=== PATIENT | female | born 1955 | race African-American/Black ===

== ENCOUNTER 2016-08-29 12:55 | Emergency (ER) | payer MEDICAID ==
[~2016-08-29] VITALS: Ht 165.1 cm; Wt 78.0 kg
[~2016-08-29 12:55] MED LIST: hormones
[2016-08-29 13:05] VITALS: Ht 165.1 cm; Wt 78.0 kg
[2016-08-29 19:23] LABS: ADD SCAN DIFF NO
[2016-08-29 19:25] LABS: BASOPHILS % 0.4 % (0.0-2.0); EOSINOPHILS # 0.3 10^3/ul (0.0-0.5); EOSINOPHILS % 5.9 % (0.0-7.0); HEMATOCRIT 42.8 % (37.0-47.0); HEMOGLOBIN 15.2 g/dl (12.0-16.0); LYMPHOCYTES # 2.2 10^3/ul (0.8-2.9); LYMPHOCYTES % 47.9 % (15.0-51.0); MEAN CORPUSCULAR HEMOGLOBIN 34.6 pg (29.0-33.0); MEAN CORPUSCULAR HGB CONC 35.5 g/dl (32.0-37.0); MEAN CORPUSCULAR VOLUME 97.5 fl (82.0-101.0); MEAN PLATELET VOLUME 8.4 fl (7.4-10.4); MONOCYTE # 0.4 10^3/ul (0.3-0.9); MONOCYTES % 8.4 % (0.0-11.0); NEUTROPHIL # 1.7 10^3/ul (1.6-7.5); NEUTROPHILS % 37.2 % (39.0-77.0); PLATELET COUNT 177 10^3/UL (140-415); RED BLOOD COUNT 4.39 10^6/ul (4.20-5.40); RED CELL DISTRIBUTION WIDTH 12.7 % (11.5-14.5); WHITE BLOOD COUNT 4.6 10^3/ul (4.8-10.8)
--- NOTE | 2016-08-29 19:29 | RADRPT ---
PROCEDURE: CT Brain without contrast. CLINICAL INDICATION: Headache TECHNIQUE: A CT of the brain was performed on a [employer] 64-slice CT scanner utilizing axial imaging from the skull base through the vertex without IV contrast. Multiplanar reformatted images were made. Images were reviewed on a PACS workstation. The CTDIvol is 44.5 mGy and the DLP is 720 mGycm. COMPARISON: None FINDINGS: There is no intracranial hemorrhage, mass effect, or midline shift. No extra-axial fluid collection is seen. The ventricles and sulci are normal in size and configuration. An extra-axial CSF density space anterior to the left temporal lobe in the left middle cranial fossa likely represents an arach noid cyst. Incidentally noted is a giana cisterna magna in the posterior fossa. Otherwise, the dens ity of the brain is normal, and the pate white matter differentiation appears well-preserved. The v isualized paranasal sinuses and osseous structures are grossly unremarkable. IMPRESSION: 1. No evidence of acute intracranial pathology. 2. An extra-axial CSF density lesion anterior to the left temporal lobe likely reflects an arachnoid cyst. This can be confirmed with a non emergent MRI of the brain. Physician Cathleen Date Time Electronically viewed and signed by Physician Cathleen on 08/29/2016 19:28 ML/
[2016-08-29 19:42] LABS: INR 0.92; PROTIME 12.4 Sec (12.2-14.2)
[2016-08-29 19:43] LABS: PARTIAL THROMBOPLASTIN TIME 25.2 Sec (25.0-35.0)
[2016-08-29 19:55] LABS: ALBUMIN 3.9 g/dl (3.3-4.9); CHLORIDE 101 mmol/L (97-110)
[2016-08-29 19:56] LABS: POTASSIUM 4.1 mmol/L (3.5-5.1); SODIUM 143 mmol/L (135-144)
[2016-08-29 19:58] LABS: ANION GAP 15 (8-16); BILIRUBIN,INDIRECT 0.3 mg/dl (0-1.1); BILIRUBIN,TOTAL 0.3 mg/dl (0.2-1.3); CARBON DIOXIDE 31 mmol/L (21-31); CREATININE 1.08 mg/dl (0.44-1.00)
[2016-08-29 19:59] LABS: ALANINE AMINOTRANSFERASE 137 IU/L (13-69); ALBUMIN/GLOBULIN RATIO 0.88; ALKALINE PHOSPHATASE 61 IU/L (42-121); ASPARTATE AMINO TRANSFERASE 110 IU/L (15-46); BLOOD UREA NITROGEN 19 mg/dl (7-20); CALCIUM 9.4 mg/dl (8.4-10.2); GLUCOSE 77 mg/dl (70-220); TOTAL PROTEIN 8.3 g/dl (6.1-8.1)
[2016-08-29] MEDS ORDERED: KETOROLAC 15 MG INJ IV STA (20:13)
--- NOTE | 2016-08-29 20:13 | ERD ---
ER Documentation Chief Complaint Date/Time DATE: 08/29/16 TIME: 20:12 Chief Complaint kenny, unclear hx HPI 61-year-old female ambulatory to the ED complaining of a four-month history of intermittent occipital headaches. Denies visual changes, focal weakness or numbness. No neck or back pain. History of same. Complaining of increasing stress and anxiety at work. Denies chest pain or palpitations. No shortness of breath or cough. No abdominal pain, nausea vomiting. No dysuria, polyuria, hematuria or flank pain. No leg pain or swelling. No skin rash. No fevers or chills. ROS All systems reviewed and are negative except as per history of present illness. Medications Home Meds Reported Medications [hormones] No Conflict Check 10/23/11 Allergies Allergies: Coded Allergies: Penicillins (Verified Allergy, 10/23/11) PMhx/Soc Reviewed in chart. As per HPI. History of Surgery: No Anesthesia Reaction: No Hx Neurological Disorder: No Hx Respiratory Disorders: No Hx Cardiac Disorders: No Hx Psychiatric Problems: No Hx Miscellaneous Medical Probl: No Hx Alcohol Use: Yes (occasional) Hx Substance Use: No Hx Tobacco Use: Yes (1pack/day) Smoking Status: Current every day smoker FmHx No coronary artery disease, diabetes, cancer subarachnoid hemorrhage Physical Exam Vitals Vital Signs Date Time Temp Pulse Resp B/P Pulse Ox O2 Delivery O2 Flow Rate FiO2 08/29/16 22:15 98.5 74 16 108/65 99 Room Air 08/29/16 20:11 80 16 114/75 99 Room Air 08/29/16 13:05 98.1 95 20 140/63 99 Physical Exam Const: Alert, no acute distress. Head: Atraumatic Eyes: Normal Conjunctiva ENT: Normal External Ears, Nose and Mouth. Neck: Full range of motion. Nontender. Carotids 2+ bilaterally without bruits. Resp: Clear to auscultation bilaterally Cardio: Regular rate and rhythm, no murmurs Abd: Soft, non tender, non distended. Normal bowel sounds Skin: No petechiae or rashes Back: No midline or flank tenderness Ext: No cyanosis, or edema Neur: Awake and alert Psych: Appears mildly anxious but not depressed. Result Diagram: 08/29/16190208/29/161902 Results 24 hrs Laboratory Tests Test 08/29/16 19:03 08/29/16 19:30 08/29/16 21:25 White Blood Count 4.610^3/ul Red Blood Count 4.3910^6/ul Hemoglobin 15.2g/dl Hematocrit 42.8% Mean Corpuscular Volume 97.5fl Mean Corpuscular Hemoglobin 34.6pg Mean Corpuscular Hemoglobin Concent 35.5g/dl Red Cell Distribution Width 12.7% Platelet Count 17306^3/UL Mean Platelet Volume 8.4fl Neutrophils % 37.2% Lymphocytes % 47.9% Monocytes % 8.4% Eosinophils % 5.9% Basophils % 0.4% Nucleated Red Blood Cells % 0.0/100WBC Neutrophils # 1.710^3/ul Lymphocytes # 2.210^3/ul Monocytes # 0.410^3/ul Eosinophils # 0.310^3/ul Basophils # 0.010^3/ul Nucleated Red Blood Cells # 0.010^3/ul Prothrombin Time 12.4Sec Prothrombin Time Ratio 1.0 INR International Normalized Ratio 0.92 Activated Partial Thromboplast Time 25.2Sec Sodium Level 143mmol/L Potassium Level 4.1mmol/L Chloride Level 101mmol/L Carbon Dioxide Level 31mmol/L Anion Gap 15 Blood Urea Nitrogen 19mg/dl Creatinine 1.08mg/dl Glucose Level 77mg/dl Calcium Level 9.4mg/dl Total Bilirubin 0.3mg/dl Direct Bilirubin 0.00mg/dl Indirect Bilirubin 0.3mg/dl Aspartate Amino Transf (AST/SGOT) 110IU/L Alanine Aminotransferase (ALT/SGPT) 137IU/L Alkaline Phosphatase 61IU/L Troponin I < 0.012ng/ml Total Protein 8.3g/dl Albumin 3.9g/dl Globulin 4.40g/dl Albumin/Globulin Ratio 0.88 Ethyl Alcohol Level < 10.0mg/dl Urine Color YELLOW Urine Clarity CLEAR Urine pH 6.5 Urine Specific [place] 1.020 Urine Ketones NEGATIVE Urine Nitrite NEGATIVE Urine Bilirubin NEGATIVE Urine Urobilinogen 2.0 E.U./dL Urine Leukocyte Esterase NEGATIVE Urine Hemoglobin NEGATIVE Urine Glucose NEGATIVE% Urine Total Protein NEGATIVE Urine Opiates Screen Negative Urine Barbiturates Negative Urine Amphetamines Screen Negative Urine Benzodiazepines Screen Negative Urine Cocaine Screen Positive Urine Cannabinoids Positive Current Medications Medications (Trade) Dose Ordered Sig/Samuel Route PRN Reason Start Time Stop Time Status Last Admin Dose Admin Ketorolac Tromethamine (Toradol) 15 mg ONCE STAT IV 08/29/16 20:13 08/29/16 20:14 DC 08/29/16 20:36 EKG: TIME: 19:31. Sinus rhythm. Ventricular rate 79. Normal OK interval. Incomplete right bundle branch block with QRS of 110 ms. EP Interpretation: Borderline EKG. IMAGING: PROCEDURE: CT Brain without contrast. CLINICAL INDICATION: Headache TECHNIQUE: A CT of the brain was performed on a [employer] 64-slice CT scanner utilizing axial imaging from the skull base through the vertex without IV contrast. Multiplanar reformatted images were made. Images were reviewed on a PACS workstation. The CTDIvol is 44.5 mGy and the DLP is 720 mGycm. COMPARISON: None FINDINGS: There is no intracranial hemorrhage, mass effect, or midline shift. No extra- axial fluid collection is seen. The ventricles and sulci are normal in size and configuration. An extra-axial CSF density space anterior to the left temporal lobe in the left middle cranial fossa likely represents an arachnoid cyst. Incidentally noted is a giana cisterna magna in the posterior fossa. Otherwise, the density of the brain is normal, and the pate white matter differentiation appears well-preserved. The visualized paranasal sinuses and osseous structures are grossly unremarkable. IMPRESSION: 1. No evidence of acute intracranial pathology. 2. An extra-axial CSF density lesion anterior to the left temporal lobe likely reflects an arachnoid cyst. This can be confirmed with a non emergent MRI of the brain. Physician Cathleen Date Time Electronically viewed and signed by Physician Cathleen on 08/29/2016 19 :28 ML/ Procedures/MDM DOCUMENTS REVIEWED: ED nurse, no prior records available ED COURSE: Ketorolac 15 mg IV. REEXAMINATION/REEVALUATION: Time: 22:55. Doing well. Asymptomatic. MEDICAL DECISION MAKIN-year-old female ambulatory to the ED complaining of a four-month history of intermittent occipital headaches. Differential Diagnosis includes but is not limited to intracranial mass, hydrocephalus, migraine headache, tension headache, subarachnoid hemorrhage, meningitis, encephalitis, temporal arteritis, sinusitis and glaucoma. Headache was gradual onset, not thunderclap or described as the "worse headache of her life" hence presentation not compatible with subarachnoid hemorrhage and LP not indicated no neurologic deficit, ataxia or other evidence of an acute intracranial process. No rhinorrhea, nasal discharge or evidence of sinusitis. No ataxia or signs of increased intracranial pressure. No stigmata of meningitis or encephalitis. CT unremarkable for an acute process and reveals an arachnoid cyst with the patient admits to having previously. No signs or symptoms of temporal arteritis. Pain resolved completely with ketorolac. Urine toxicology is positive for cocaine patient subsequently admitted use. Drug cessation counseling provided. Stable for discharge precautionary instructions and outpatient management follow-up. Counseled patient regarding diagnostic workup, diagnosis and need for followup. Understands to return to ED if symptoms recur, worsen or any other concerns. Departure Diagnosis: Primary Impression: Cephalgia Headache type: unspecified Headache chronicity pattern: unspecified pattern Intractability: not intractable Qualified Code: R51 - Nonintractable headache, unspecified chronicity pattern, unspecified headache type Additional Impressions: Cocaine abuse Anxiety Arachnoid cyst ALVA CLEMENTE MD Aug 29, 2016 20:12
[2016-08-29 20:36] LABS: TROPONIN-I < 0.012 ng/ml (0.00-0.12)
[2016-08-29 21:41] LABS: ADD UMIC NO; URINE BILIRUBIN (Dip) NEGATIVE (NEGATIVE); URINE BLOOD (Dip) NEGATIVE (NEGATIVE); URINE COLOR YELLOW (YELLOW); URINE GLUCOSE (Dip) NEGATIVE (NEGATIVE); URINE KETONES (Dip) NEGATIVE (NEGATIVE); URINE LEUKOCYTE ESTERASE (Dip) NEGATIVE (NEGATIVE); URINE NITRITE (Dip) NEGATIVE (NEGATIVE); URINE TOTAL PROTEIN (Dip) NEGATIVE (NEGATIVE); URINE UROBILINOGEN (Dip) 2.0 E.U./dL (0.1-1.0)
[2016-08-29 22:08] LABS: COCAINE Positive (NEGATIVE)
[2016-08-29 22:15] VITALS: BP 108/65; PULSE 74; RESP 16; TEMP 98.5
[2016-08-29 22:16] LABS: BARBITURATES Negative (NEGATIVE); BENZODIAZEPINES Negative (NEGATIVE); CANNABINOIDS Positive (NEGATIVE); OPIATES Negative (NEGATIVE)
== END 2016-08-29 23:01 | disposition home or self-care (01) ==
LOC: E/R 12:55
DX: R51 Headache (principal); R40.2252 Coma scale, best verbal response, oriented, at arrival to emergency department; F14.10 Cocaine abuse, uncomplicated; F41.9 Anxiety disorder, unspecified; G93.0 Cerebral cysts; F17.210 Nicotine dependence, cigarettes, uncomplicated; R40.2142 Coma scale, eyes open, spontaneous, at arrival to emergency department; R40.2362 Coma scale, best motor response, obeys commands, at arrival to emergency department
CPT/HCPCS: 70450; 80053; 80306; 80307; 81003; 84484; 85025; 85610; 85730; 93005; 96374; J1885; Z7502